=== PATIENT | female | born 2000 | race African-American/Black ===

== ENCOUNTER 2024-01-27 14:04 | Emergency (ER) | payer MEDICAID ==
[~2024-01-27] VITALS: Ht 175.3 cm; Wt 49.2 kg
[~2024-01-27 14:04] MED LIST: DICY10CA PO; METO-281 PO; ZOFR4T PO
[2024-01-27 15:33] LABS: Basophils # (auto) 0 10 ^3/uL (0-0.2); Basophils % (auto) 0.4 % (0.0-2.0); Eosinophils # (auto) 0.1 10 ^3/uL (0-0.8); Hematocrit 48.3 % (36.0-46.0); Hemoglobin 16.5 g/dL (12.2-16.2); Lymphocytes # (auto) 1.8 10 ^3/uL (0.4-5.4); Lymphocytes % (auto) 22.1 % (10.0-50.0); Mean Corpuscular Hemoglobin 27.6 pg (28.0-32.0); Mean Corpuscular Hgb Conc. 34.2 g/dL (32.0-36.0); Mean Corpuscular Volume 80.7 fL (80.0-100.0); Monocytes % (auto) 12.1 % (0.0-12.0); Neutrophils # (auto) 5.2 10 ^3/uL (1.6-8.6); Neutrophils % (auto) 64.4 % (37.0-80.0); Nucleated Red Blood Cells % 0.1 %; Red Blood Cells 5.98 10^6/uL (4.0-5.20); Red Cell Distribution Width 15.6 % (11.8-14.3); White Blood Cell 8.1 10^3/uL (4.4-10.8)
[2024-01-27 15:39] LABS: Urine Bacteria NONE SEEN /hpf (None Seen); Urine Blood 2+ /uL (Negative); Urine Clarity Clear (Clear); Urine Color Yellow (Yellow); Urine Hyaline Cast MOD /lpf (0 - 2); Urine Mucus MODERATE (None Seen); Urine Protein, UAD 1+ (Negative); Urine Specific Gravity 1.029 (1.001-1.035); Urine Urobilinogen Normal (Negative); Urine WBC 5 /hpf (0 - 5)
[2024-01-27 16:05] LABS: Alanine Aminotransferase 20 U/L (7-40); Albumin 5.5 g/dL (3.2-4.8); Alkaline Phosphatase 60 U/L (46-116); Anion Gap 10 (5-15); Aspartate Aminotransferase 25 U/L (13-40); Bilirubin, Direct 0.5 mg/dL (<0.3); Blood Urea Nitrogen 23 mg/dL (9-23); Calcium 10.2 mg/dL (8.5-10.1); Carbon Dioxide 26 mmol/L (20-30); Chloride 94 mmol/L (98-107); Glucose 105 mg/dL (74-106); Potassium 3.7 mmol/L (3.5-5.1)
[2024-01-27 16:06] LABS: Bilirubin, Total 1.5 mg/dL (0.2-1.0); Sodium 130 mmol/L (136-145); Total Protein 8.5 g/dL (5.7-8.2)
[2024-01-27] MEDS: ONDANSETRON HCL 4 MG/2 ML VIAL IV ONE (16:30)
[2024-01-27 16:32] LABS: Lipase 29 U/L (12-53)
[2024-01-27] MEDS: SODIUM CHLORIDE 0.9% 1,000 ML IV ONE (17:53)
[2024-01-27 18:04] VITALS: BP 133/95; PULSE 101; RESP 19; O2SAT 100
[2024-01-27] MEDS: LORazepam 2MG/ML-1ML VIAL IM ONE (19:04)
== END 2024-01-27 19:28 | disposition home or self-care (01) ==
LOC: ER 14:04
DX: R10.2 Pelvic and perineal pain (principal); F12.188 Cannabis abuse with other cannabis-induced disorder
CPT/HCPCS: 36415; 80048; 80076; 81001; 83690; 84702; 85025; 96360; 96372; 99283; J2060; J7030

== ENCOUNTER 2024-09-18 01:00 | Emergency (ER) | payer MEDICAID ==
[~2024-09-18] VITALS: Ht 175.3 cm; Wt 63.6 kg
[2024-09-18 01:08] VITALS: BP 130/68; PULSE 88; RESP 18; O2SAT 100
[2024-09-18] MEDS: FLUORESCEIN SOD OPTH TEST STRIP EACHEYE ONE (01:30)
[2024-09-18] MEDS: TETRAHYDROZOLINE HCL 0.05% OPTH(EYE)SOL OP ONE (01:30)
[2024-09-18] MEDS ORDERED: CIPR0.3S67 OP (02:03)
[2024-09-18] MEDS: ERYTHROMY OPTH OINT 5mg/gm 1gm or 3.5gm tube OP ONE (02:07)
== END 2024-09-18 02:29 | disposition home or self-care (01) ==
LOC: ER 01:00
DX: H18.822 Corneal disorder due to contact lens, left eye (principal); Z79.899 Other long term (current) drug therapy